=== PATIENT | female | born 1950 | race Caucasian/White ===

== ENCOUNTER 2020-09-02 15:09 | Emergency (ER) | payer MEDICARE ==
[~2020-09-02] VITALS: Ht 157.5 cm; Wt 85.7 kg
[~2020-09-02 15:09] MED LIST: ADVAIR 250-501 EACH INH; ALBUTEROL SULF8.5 GM IH; CELEXA20 MG PO; COLACE100 MG PO; FLEXERIL PO; HYDROCODONE-AP1 EAC6 PO; LEVAQUIN 750 M750 MG PO; MIRALAX17 GM PO; MUCINEX TA600 MG/TA2 PO; NICODERM CQ1 EACH TRANSDERM; PHENDIMETRAZIN105 MG PO; PREDNISONE 10 M10 MG PO; PROAIR HFA8.5 GM INH; SINGULAIR 10 MG10 M1 PO; SPIRIVA INH; SPIRIVA18 MCG IH; WELLBUTRIN 100100 MG PO; XANAX 0.5 MG0.5 MG PO
[2020-09-02 15:52] LABS: HEMATOCRIT 35.4 % (37.0-47.0); HEMOGLOBIN 12.2 gm/dL (12.0-15.0); MCH 33.6 pg (26.0-34.0); MCHC 34.5 g/dL (28.0-37.0); MCV 97.4 fL (80.0-100.0); MPV 7.5 fl. (7.2-11.1); RBC 3.63 mil/uL (4.20-5.00); RDW-CV 13.2 % (10.5-14.5); WBC 7.2 thou/uL (4.0-11.0)
[2020-09-02 15:56] LABS: CALCIUM 8.7 mg/dL (8.5-10.1); POTASSIUM 3.6 mmol/L (3.5-5.1)
[2020-09-02] MEDS ORDERED: HYDROCODON-ACE1 EAC7 PO (17:09)
[2020-09-02] MEDS ORDERED: FLEXERIL PO (17:09)
[2020-09-02 17:25] VITALS: BP 130/68
== END 2020-09-02 17:25 | disposition home or self-care (01) ==
LOC: M.ERS 15:09
PROVIDERS: Emergency Medicine Emergency Medical Services
DX: M79.661 Pain in right lower leg (principal); J44.9 Chronic obstructive pulmonary disease, unspecified; F17.210 Nicotine dependence, cigarettes, uncomplicated; Z88.5 Allergy status to narcotic agent